=== PATIENT | female | born 1960 | race Caucasian/White ===

== ENCOUNTER 2018-05-12 15:56 | Inpatient (IN) | END 2018-05-16 19:00 | disposition home or self-care (01) | DRG 202 ==

== ENCOUNTER 2019-07-24 20:13 | Emergency (ER) | payer MEDICAID, OTHER ==
[~2019-07-24] VITALS: Wt 81.9 kg
[~2019-07-24 20:13] MED LIST: ALBU8.5H8 INH; CARV6.2579 PO; LEVO500T48 PO; MED4DP PO; Nicotine (14 Mg/24 Hr) TRANSDERM; PRED20TA PO; RISP-7 PO
[2019-07-24] MEDS ORDERED: DEXAMETHASONE 10 MG/ML 1 ML INJ IM ONE (22:30)
[2019-07-25 00:15] VITALS: BP 172/93; PULSE 68; RESP 18
== END 2019-07-25 00:16 | disposition home or self-care (01) ==
LOC: FTE 20:13
DX: J45.901 Unspecified asthma with (acute) exacerbation (principal); F17.210 Nicotine dependence, cigarettes, uncomplicated
CPT/HCPCS: 96372; J1100; Z7502

== ENCOUNTER 2019-08-20 17:53 | Emergency (ER) | payer OTHER ==
[~2019-08-20] VITALS: Ht 160 cm; Wt 73.0 kg
[~2019-08-20 17:53] MED LIST changes: +ALBU18HF INHALATION
[2019-08-20] MEDS ORDERED: predniSONE 20 MG TAB PO ONE (18:00)
[2019-08-20 18:09] VITALS: BP 138/79; PULSE 97; RESP 24; Ht 160 cm; Wt 73.0 kg
== END 2019-08-20 18:51 | disposition home or self-care (01) ==
LOC: E/R 17:53
DX: J45.901 Unspecified asthma with (acute) exacerbation (principal); Z87.891 Personal history of nicotine dependence
CPT/HCPCS: J7512; Z7502; 99283